=== PATIENT | female | born 1980 | race Caucasian/White ===

== ENCOUNTER 2016-10-15 21:32 | Emergency (ER) | payer OTHER ==
[2016-10-15 21:45] VITALS: TEMP 37; Ht 157.5 cm
[2016-10-15] MEDS ORDERED: CHOL2000 PO (22:43)
[2016-10-15] MEDS ORDERED: PRVHFAIN INH (22:43)
[2016-10-15] MEDS ORDERED: SERT-234 PO (22:43)
--- NOTE | 2016-10-15 22:59 | DIAGNOSTIC IMAGING REPORT ---
LEFT HIP UNILATERAL 2 VIEWS CLINICAL HISTORY: Left hip pain and difficulty weightbearing following injury. COMPARISON: None FINDINGS: Alignment of the left hip is anatomic. There is no acute fracture. A lucency projecting over the inferior aspect the greater trochanter is likely artifactual. Joint space is preserved. There may be a tiny osteophyte along the superior lateral aspect of the acetabulum. IMPRESSION: 1. No acute fracture or dislocation of the left hip. A lucency projecting over the inferior aspect of the greater trochanter is likely artifactual. 2. Preserved left hip joint space with minimal osteophytosis. Electronically signed by: Luis Daniel Dior M.D. 10/15/2016 10:57 PM Dictated Date/Time: 10/15/2016 10:54 PM
[2016-10-15] MEDS ORDERED: OXYC1TAB3 PO (23:34)
[2016-10-15] MEDS ORDERED: OXYCODONE IR HOME PACK PO ONE (23:45)
--- NOTE | 2016-10-15 23:49 | EMERGENCY ROOM VISIT NOTE ---
History First contact with patient: 22:07 Chief Complaint: HIP PAIN Stated Complaint: L HIP POPPED History of Present Illness The patient is a 36 year old female who presents to the Emergency Room with complaints of persistent left hip pain. The patient reports that she was standing at the top of her stairs last night, kicking snow with her RIGHT foot toward her dog who was at the bottom of the steps. The patient reports that her LEFT hip then popped, and she fell onto the side of her hip. The patient has had persistent left hip pain since that time. The patient denies any prior history of left hip injuries. She reports that she is currently being worked up for generalized joint and muscle pain. She has seen orthopedics and rheumatology. She had some recent lab work performed as well by her PCP. She denies any previous pain in her left hip. She currently denies any other injuries from her fall, including back pain. She rates her discomfort a 7 out of 10. Review of Systems 10 system review was performed and was negative except for pertinent positives and negatives as indicated in history of present illness Past Medical/Surgical History Medical Problems: (1) Joint pain Surgical Problems: (1) No history of previous surgery Family History Unremarkable Social History Smoking Status: Never Smoker Drug Use: none Marital Status: Occupation Status: employed Current/Historical Medications Scheduled Cholecalciferol (Vitamin D3), 2,000 INTER.UNIT PO DAILY Sertraline (Zoloft), 100 MG PO DAILY Scheduled PRN Albuterol (Ventolin Hfa), 2 PUFFS INH Q4-6HRS PRN for Shortness of Breath Oxycodone Ir (Roxicodone Ir), 1-2 TAB PO Q4H PRN for Pain Physical Exam Vital Signs Date Time Temp Pulse Resp B/P Pulse Ox O2 Delivery O2 Flow Rate FiO2 10/15/16 23:00 78 18 142/89 93 Room Air 10/15/16 21:45 37.0 86 18 152/92 95 Room Air Physical Exam CONSTITUTIONAL: Healthy and well nourished. Alert and oriented X 3 with positive affect. Patient appears in mild discomfort from pain. HEENT: Normocephalic, atraumatic. Pupils equal, round and reactive. NECK: Full active range of motion without discomfort. MUSCULOSKELETAL: Examination shows no pain with internal and external rotation of the hip. She does have mild discomfort at extreme ranges of internal/ external rotation, hip flexion and abduction. She has no focal tenderness to palpation over the pelvic wing or ASIS. Pelvis is stable with rock. No tenderness to palpation through the SI joints. Pedal pulses are intact. INTEGUMENTARY: No rash or other significant dermatologic conditions noted. NEUROLOGIC: Left foot and toes are sensory intact. Medical Decision & Procedures ER Provider Diagnostic Interpretation: My interpretation of left hip x-rays does not show any acute fractures or dislocation. Radiologist report is as follows: LEFT HIP UNILATERAL 2 VIEWS CLINICAL HISTORY: Left hip pain and difficulty weightbearing following injury. COMPARISON: None FINDINGS: Alignment of the left hip is anatomic. There is no acute fracture. A lucency projecting over the inferior aspect the greater trochanter is likely artifactual. Joint space is preserved. There may be a tiny osteophyte along the superior lateral aspect of the acetabulum. IMPRESSION: 1. No acute fracture or dislocation of the left hip. A lucency projecting over the inferior aspect of the greater trochanter is likely artifactual. 2. Preserved left hip joint space with minimal osteophytosis. ED Course Patient history and physical exam were performed. Nurse's notes were reviewed. The patient refused any analgesics while in the emergency department. X-rays of the left hip were grossly normal. Patient was dispensed crutches. She also received a home pack and prescription for OxyIR 5 mg as needed for pain. She was encouraged to alternate ibuprofen and Tylenol for baseline pain relief. She was instructed to follow-up with orthopedics for further reevaluation and management. The patient was happy with plan of care, voiced understanding of all discharge instructions, and rated her pain a 6 out of 10 at the time of discharge. Impression Primary Impression: Injury of left hip Additional Impression: Fall due to ice or snow Departure Information Prescriptions Oxycodone Ir (Roxicodone Ir) 5 Mg Tab 1-2 TAB PO Q4H Y for Pain, #15 TAB For Initial Treatment Prov: Ethan Lenz PA 10/15/16 Referrals Tere Rodrigues DO (PCP) Patient Instructions My [facility] Problem Qualifiers Primary Impression: Injury of left hip Encounter type: initial encounter Qualified Codes: S79.912A - Unspecified injury of left hip, initial encounter Additional Impression: Fall due to ice or snow Encounter type: initial encounter Qualified Codes: W00.9XXA - Unspecified fall due to ice and snow, initial encounter
[2016-10-15 23:53] VITALS: BP 138/78; PULSE 78; O2SAT 96
== END 2016-10-15 23:54 | disposition home or self-care (01) ==
LOC: C.EDB 21:34
DX: S79.912A Unspecified injury of left hip, initial encounter (principal); W01.0XXA Fall on same level from slipping, tripping and stumbling without subsequent striking against object, initial encounter; Z79.899 Other long term (current) drug therapy

== ENCOUNTER 2016-12-07 13:44 | Emergency (ER) | payer OTHER ==
[~2016-12-07] VITALS: Ht 157.5 cm; Wt 75.8 kg
[~2016-12-07 13:44] MED LIST: CHOL2000 PO; OXYC1TAB3 PO; PRVHFAIN INH; SERT-234 PO
[2016-12-07 13:50] VITALS: TEMP 36.7; Ht 157.5 cm; Wt 75.8 kg
--- NOTE | 2016-12-07 14:08 | EMERGENCY ROOM VISIT NOTE ---
ED Visit Note First contact with patient: 13:57 CHIEF COMPLAINT: Foot pain HISTORY OF PRESENT ILLNESS: This 36-year-old female patient presents to the emergency department ambulatory complaining of swelling and pain in the right foot at rest and worse with weight bearing. The patient states that she kicked a door frame and hurt her foot one week ago and was seen at urgent care and had negative x-rays. She states that she has been trying to favor the leg. She states that yesterday she stepped down onto the right foot and heard a crack. She states she has had increased pain since then. The patient rates the pain as sharp and 8.5/10. The patient has no relief of the pain. The patient is able to walk. No numbness or weakness. No ankle pain. There are no lacerations of the foot. The patient is able to move all of their toes and their ankle but does have ankle pain. Patient denies previous injury to this foot. REVIEW OF SYSTEMS: GENERAL: A 6 system review of systems was completed with positives and pertinent negatives in the HPI. ALLERGIES: No known drug allergies MEDICATIONS: Zoloft, BuSpar, albuterol PMH: Depression, asthma SOCIAL HISTORY: The patient lives locally. She does not smoke currently. PHYSICAL EXAM: Vital Signs: Reviewed Nurse's notes, vital signs stable. GENERAL : This is a 36-year-old female, in no acute distress, but appears in pain, well- developed, well-nourished. MUSCULOSKELETAL: There is no visual deformity of the right foot. There is no erythema but mild ecchymosis. There is no warmth. There is tenderness and swelling over the dorsum of the right foot. The range of motion of the foot is mildly limited secondary to pain. There is no tenderness over the plantar fascia. Dorsi flexion 5/5 and Plantar flexion 5/5. The skin is intact and there are no lacerations or puncture wounds. Dorsalis pedis pulse 2+ . Capillary refill less than 2 seconds. There is mild tenderness to palpation of the medial malleolus. There is no ecchymosis, edema or deformity to the ankle. EMERGENCY DEPARTMENT COURSE: I examined the patient. An X-ray of the right foot and ankle foot were reviewed by myself and radiology and reveals no fracture dislocation. The patient was placed in a post-op shoe and declined crutches stating she has them at home. She has an appointment with orthopedics tomorrow. She is encouraged to keep this appointment. She should return with any worsening symptoms. The patient was discharged home in good condition. RIGHT ANKLE MIN 3 VIEWS ROUTINE CLINICAL HISTORY: Right ankle pain status post trauma COMPARISON: None. DISCUSSION: No fractures or dislocations are visualized. The ankle mortise appears intact on these nonstress views. IMPRESSION: No fractures or dislocations identified. RIGHT FOOT MIN 3 VIEWS ROUTINE CLINICAL HISTORY: Right foot pain status post trauma COMPARISON: None. DISCUSSION: No fractures or dislocations are visualized. IMPRESSION: No fractures or dislocations identified. TREATMENT: Ice and elevation for 24-48 hrs. Ibuprofen, 600mg every 6 hours for the pain. Avoid weight bearing and use crutches and post-op shoe until the pain subsides and you can walk without a limp. Follow up with orthopedics tomorrow as scheduled. Return with worsening symptoms. Current/Historical Medications Scheduled Buspirone Hcl (Buspar), 5 MG PO BID Cholecalciferol (Vitamin D3), 2,000 INTER.UNIT PO DAILY Sertraline (Zoloft), 100 MG PO DAILY Scheduled PRN Albuterol (Ventolin Hfa), 2 PUFFS INH Q4-6HRS PRN for Shortness of Breath Allergies Coded Allergies: No Known Allergies (Unverified , 12/07/16) Vital Signs Date Time Temp Pulse Resp B/P Pulse Ox O2 Delivery O2 Flow Rate FiO2 12/07/16 15:18 101 18 133/97 95 Room Air 12/07/16 13:50 36.7 Departure Information Impression Primary Impression: Foot sprain Additional Impression: Ankle sprain Dispostion Home / Self-Care Condition GOOD Referrals Tere Rodrigues DO (PCP) Forms HOME CARE DOCUMENTATION FORM, IMPORTANT VISIT INFORMATION, Work Instructions Return To Work: 2 days Patient Instructions ED Sprain Foot, My [facility]. Additional Instructions Ice and elevation for 24-48 hrs. Ibuprofen, 600mg every 6 hours for the pain. Avoid weight bearing and use crutches and post-op shoe until the pain subsides and you can walk without a limp. Follow up with orthopedics tomorrow as scheduled. Return with worsening symptoms. Problem Qualifiers Primary Impression: Foot sprain Encounter type: initial encounter Laterality: right Qualified Codes: S93.601A - Unspecified sprain of right foot, initial encounter Additional Impression: Ankle sprain Encounter type: initial encounter Laterality: right
[2016-12-07] MEDS ORDERED: BUSP15TA70 PO (14:19)
--- NOTE | 2016-12-07 14:48 | DIAGNOSTIC IMAGING REPORT ---
RIGHT ANKLE MIN 3 VIEWS ROUTINE CLINICAL HISTORY: Right ankle pain status post trauma COMPARISON: None. DISCUSSION: No fractures or dislocations are visualized. The ankle mortise appears intact on these nonstress views. IMPRESSION: No fractures or dislocations identified. Electronically signed by: Santi Muro M.D. 12/07/2016 2:47 PM Dictated Date/Time: 12/07/2016 2:46 PM
--- NOTE | 2016-12-07 14:49 | DIAGNOSTIC IMAGING REPORT ---
RIGHT FOOT MIN 3 VIEWS ROUTINE CLINICAL HISTORY: Right foot pain status post trauma COMPARISON: None. DISCUSSION: No fractures or dislocations are visualized. IMPRESSION: No fractures or dislocations identified. Electronically signed by: Santi Muro M.D. 12/07/2016 2:48 PM Dictated Date/Time: 12/07/2016 2:47 PM
[2016-12-07 15:18] VITALS: BP 133/97; PULSE 101; O2SAT 95
== END 2016-12-07 15:20 | disposition home or self-care (01) ==
LOC: C.EDB 13:46 → C.EDD 15:20
DX: S93.601A Unspecified sprain of right foot, initial encounter (principal); S93.401A Sprain of unspecified ligament of right ankle, initial encounter; W22.8XXA Striking against or struck by other objects, initial encounter

== ENCOUNTER → 2017-08-17 | Outpatient (CLI) | payer OTHER ==
[~2017-08-17] MED LIST changes: +BUSP15TA70 PO; -OXYC1TAB3 PO
[2017-08-17 18:03] LABS: BASO % 0.7 %; BASO ABS # 0.05 K/uL (0-0.2); COMPLETE YES; EOS % 5.6 %; HEMATOCRIT 34.3 % (37-47); IG% 0.1 %; LYMPH % 28.4 %; LYMPH ABS # 2.04 K/uL (1.2-3.4); MEAN CELL VOLUME 89.6 fL (80-100); MEAN CORPUSCULAR HEMOGLOBIN 28.7 pg (25-34); MEAN CORPUSCULAR HGB CONC 32.1 g/dl (32-36); MEAN PLATELET VOLUME 9.8 fL (7.4-10.4); MONO % 8.5 %; NEUT % 56.7 %; PLATELET COUNT 311 K/uL (130-400); RED BLOOD COUNT 3.83 M/uL (4.2-5.4); WHITE BLOOD COUNT 7.19 K/uL (4.8-10.8)
[2017-08-17 18:37] LABS: ALT/SGPT 27 U/L (12-78); AST/SGOT 22 U/L (15-37); BLOOD UREA NITROGEN 9 mg/dl (7-18); BUN/CREATININE RATIO 11.3 (10-20); CALCIUM 8.4 mg/dl (8.5-10.1); CARBON DIOXIDE 29 mmol/L (21-32); CHLORIDE 102 mmol/L (98-107); GLUCOSE 100 mg/dl (70-99); SODIUM 135 mmol/L (136-145)
[2017-08-17 18:46] LABS: ALKALINE PHOSPHATASE 80 U/L (45-117); FERRITIN 8.2 ng/ml (8.0-388.0); TOTAL IRON BINDING CAPACITY 386 mcg/dl (250-450)
[2017-08-17 19:02] LABS: PREG INTERNAL NEGATIVE QC NEG CLEAR BACKGROUND; PREG INTERNAL POSITIVE QC POS CONTROL LINE
== END | disposition home or self-care (01) ==
LOC: C.LABPBG 15:53
PROVIDERS: ATTEND Family Medicine
DX: F10.20 Alcohol dependence, uncomplicated (principal); R53.83 Other fatigue; D64.9 Anemia, unspecified; E55.9 Vitamin D deficiency, unspecified

== ENCOUNTER → 2017-09-08 | Outpatient (CLI) | payer OTHER ==
[2017-09-09 14:20] LABS: ANA SCREEN TC 249X NEGATIVE (NEGATIVE)
== END | disposition home or self-care (01) ==
LOC: C.LABPBG 08:44
PROVIDERS: ATTEND Family Medicine
DX: M25.50 Pain in unspecified joint (principal); R76.8 Other specified abnormal immunological findings in serum; Z13.220 Encounter for screening for lipoid disorders

== ENCOUNTER → 2017-12-27 | Outpatient (CLI) | payer OTHER ==
[2017-12-27 19:29] LABS: HEMATOCRIT 37.1 % (37-47); HEMOGLOBIN 13.2 g/dL (12.0-16.0); MEAN CELL VOLUME 93.9 fL (80-100); MEAN CORPUSCULAR HEMOGLOBIN 33.4 pg (25-34); MEAN CORPUSCULAR HGB CONC 35.6 g/dl (32-36); MEAN PLATELET VOLUME 10.2 fL (7.4-10.4); PLATELET COUNT 199 K/uL (130-400); RED CELL DISTRIBUTION WIDTH CV 12.6 % (11.5-14.5); RED CELL DISTRIBUTION WIDTH SD 43.2 fL (36.4-46.3); WHITE BLOOD COUNT 6.79 K/uL (4.8-10.8)
[2017-12-27 19:53] LABS: ALBUMIN 3.7 gm/dl (3.4-5.0); ALKALINE PHOSPHATASE 72 U/L (45-117); ALT/SGPT 28 U/L (12-78); AST/SGOT 18 U/L (15-37); TOTAL PROTEIN 7.1 gm/dl (6.4-8.2)
== END | disposition home or self-care (01) ==
LOC: C.LAB 19:05
PROVIDERS: ATTEND Family Medicine
DX: F10.20 Alcohol dependence, uncomplicated (principal)